=== PATIENT | male | born 1950 | race Two or more races ===

== ENCOUNTER 2024-08-25 07:10 | Day surgery (SDC) | payer OTHER ==
[2024-08-17 12:06] VITALS: BP 150/70
[~2024-08-25] VITALS: Ht 182.9 cm; Wt 99.8 kg
[~2024-08-25 07:10] MED LIST: CRESTOR40 MG PO; LOSARTAN POTASS25 MG PO; ZOLOFT50 MG PO; ZYLOPRIM100 MG PO
[2024-08-25] MEDS ORDERED: CEFTRIAXONE SODIUM 2,000 MG VIAL IV ONE (10:00)
[2024-08-25] MEDS ORDERED: BUPIVACAINE LIPOSOME/PF 266 MG/20 ML VIAL IJ ONE (10:00)
[2024-08-25] MEDS ORDERED: DIBUCAINE 30 GM TUBE RECTAL ONE (10:00)
[2024-08-25] MEDS ORDERED: HEMOSTATIC MATRIX 1 KIT KIT TOP ONE (10:00)
[2024-08-25] MEDS ORDERED: BUPIVACAINE HCL 30 ML VIAL IJ ONE (10:00)
[2024-08-25] MEDS ORDERED: METRONIDAZOLE/SODIUM CHLORIDE 500 MG/100 ML PIGGYBACK IV ONE (10:00)
[2024-08-25] MEDS ORDERED: CELECOXIB200 MG PO (12:56)
[2024-08-25] MEDS ORDERED: INTESTINEX680 M1 PO (12:56)
[2024-08-25] MEDS ORDERED: PERCOCET 5-3251 EACH PO (12:57)
[2024-08-25] MEDS ORDERED: NEURONTIN300 MG PO (12:57)
== END 2024-08-25 14:50 | disposition home or self-care (01) ==
LOC: CIR.AMB 07:10
PROVIDERS: ATTEND Surgery
DX: K64.2 Third degree hemorrhoids (principal); K64.4 Residual hemorrhoidal skin tags; K60.1 Chronic anal fissure